=== PATIENT | female | born 1960 | race Caucasian/White ===

== ENCOUNTER 2023-04-04 15:40 | Emergency (ER) | payer BC ==
[2023-04-04] MEDS ORDERED: SODIUM CHLORIDE 500 ML IV STA (15:59)
[2023-04-04] MEDS ORDERED: methylPREDNISolone NA SUCC 125 MG/2 ML VIAL IVPB ONE (16:06)
[2023-04-04 16:37] VITALS: BP 131/70; PULSE 69; RESP 18; TEMP 99; BMI 19.8
[2023-04-04] MEDS ORDERED: ALBUTEROL SO4 2.5/IPRATROPIUM 0.5 INH SOL 3 ML VIAL.NEB. NEB ONE (17:39)
[2023-04-04] MEDS ORDERED: methylPREDNISolone NA SUCC 125 MG/2 ML VIAL ONE (17:39)
[2023-04-04] MEDS: ALBUTEROL SO4 2.5/IPRATROPIUM 0.5 INH SOL 3 ML VIAL.NEB. NEB SCH ×2 (17:53→17:54)
[2023-04-04 17:58] LABS: BASO % 0.6 % (0-2.0); EOS % 0.9 % (0-4.5); HEMATOCRIT 33.7 % (32.4-45.2); HEMOGLOBIN 11.5 GM/dL (10.7-15.3); LYMPH % 23.3 % (8-40); MEAN CELL VOLUME 85.3 fl (80-96); MEAN PLT VOLUME 7.7 fl (7.5-11.1); MONO % 4.9 % (3.8-10.2); NEUT % 70.3 % (42.8-82.8); PLATELET COUNT 139 10^3/uL (134-434); RBC 3.95 M/mm3 (3.60-5.2); RDW 15.8 % (11.6-15.6); WHITE BLOOD COUNT 3.8 K/mm3 (4.0-10.0)
[2023-04-04 18:14] LABS: INR 1.39 (0.83-1.09); PROTHROMBIN TIME (PATIENT) 16.1 SEC (9.7-13.0)
[2023-04-04 18:17] LABS: ACTIVATED PTT 45.1 SECONDS (25.2-36.5)
[2023-04-04 18:32] LABS: ALBUMIN 3.6 g/dl (3.4-5.0); BILIRUBIN,TOTAL 0.3 mg/dL (0.2-1); BLOOD UREA NITROGEN 17.8 mg/dL (7-18); CALCIUM 8.8 mg/dL (8.5-10.1); CREATININE 0.8 mg/dL (0.55-1.3); MAGNESIUM 1.7 mg/dL (1.8-2.4); POTASSIUM 4.2 mmol/L (3.5-5.1); TOT PROT 7.4 g/dl (6.4-8.2)
[2023-04-04] MEDS ORDERED: MAGNESIUM OXIDE 400 MG TABLET (FP) PO ONE (19:05)
[2023-04-04] MEDS ORDERED: MAGNESIUM OXIDE 400 MG TABLET (FP) ONE (19:24)
== END 2023-04-04 19:29 | disposition home or self-care (01) ==
LOC: JER 15:40
PROC: 3E033GC Introduction of Other Therapeutic Substance into Peripheral Vein, Percutaneous Approach (ICD-10-PCS; principal; 2023-04-04)
PROC: 3E0337Z Introduction of Electrolytic and Water Balance Substance into Peripheral Vein, Percutaneous Approach (ICD-10-PCS; 2023-04-04)
PROC: 3E0F7GC Introduction of Other Therapeutic Substance into Respiratory Tract, Via Natural or Artificial Opening (ICD-10-PCS; 2023-04-04)
DX: R05.9 Cough, unspecified (principal); R50.9 Fever, unspecified; M79.10 Myalgia, unspecified site; R07.81 Pleurodynia; U07.1 COVID-19
CPT/HCPCS: 36415; 71045-TC-FY; 80053; 83735; 85025; 85610; 85730; 93005; 93010; 99285-25

== ENCOUNTER 2023-04-13 13:36 | Observation (INO) | payer BC ==
[2023-04-13] MEDS ORDERED: VANCOMYCIN/WATER FOR INJ (PEG) 1,000 MG/200 ML BAG IVPB ONE (13:51)
[2023-04-13] MEDS: APIXABAN 5 MG TABLET PO SCH ×2 (15:05→21:28)
[2023-04-13] MEDS: LACTATED RINGERS SOLUTION 1,000 ML/1,000 ML INFUS.BAG IV SCH (15:05)
[2023-04-13] MEDS: PANTOPRAZOLE 40 MG TABLET PO SCH (15:05)
[2023-04-13] MEDS: FLUTICASONE/UMECLIDIN/VILANTER(200-62.5-25 TRELEGY ELLIPTA) INAHLER IH SCH (15:06)
[2023-04-13 15:54] LABS: BASO % 0.3 % (0-2.0); EOS % 0.9 % (0-4.5); HEMATOCRIT 34.5 % (32.4-45.2); HEMOGLOBIN 11.5 GM/dL (10.7-15.3); LYMPH % 13.4 % (8-40); MCH 28.5 pg (25.7-33.7); MCHC 33.5 g/dl (32.0-36.0); MEAN CELL VOLUME 85.2 fl (80-96); MEAN PLT VOLUME 7.7 fl (7.5-11.1); MONO % 8.3 % (3.8-10.2); NEUT % 77.1 % (42.8-82.8); PLATELET COUNT 203 10^3/uL (134-434); RBC 4.05 M/mm3 (3.60-5.2); RDW 15.2 % (11.6-15.6); WHITE BLOOD COUNT 6.1 K/mm3 (4.0-10.0)
[2023-04-13 16:12] LABS: POTASSIUM 4.7 mmol/L (3.5-5.1)
[2023-04-13 16:14] LABS: CALCIUM 7.8 mg/dL (8.5-10.1)
[2023-04-13 16:15] LABS: BLOOD UREA NITROGEN 15.5 mg/dL (7-18); MAGNESIUM 1.9 mg/dL (1.8-2.4)
[2023-04-13 16:18] LABS: CREATININE 0.8 mg/dL (0.55-1.3); PHOSPHOROUS 3.1 mg/dL (2.5-4.9)
[2023-04-13 16:19] LABS: TOT PROT 6.2 g/dl (6.4-8.2)
[2023-04-13 16:20] LABS: BILIRUBIN,TOTAL 0.5 mg/dL (0.2-1)
[2023-04-13 16:25] LABS: LACTIC ACID 2.9 mmol/L (0.4-2.0)
[2023-04-13 16:26] LABS: ALBUMIN 2.8 g/dl (3.4-5.0)
[2023-04-13] MEDS: PIPERACILLIN/TAZOB 3.375 GM 3.375 GM in DEXTROSE 5%-WATER - 50 ML IVPB SCH (17:41)
[2023-04-13] MEDS ORDERED: amLODIPine BESYLATE 10 MG TABLET (FP) PO SCH (17:45)
[2023-04-13] MEDS: amLODIPine BESYLATE 5 MG TABLET (FP) PO SCH (18:15)
[2023-04-13] MEDS: ROSUVASTATIN CA 20 MG TABLET PO SCH (21:28)
[2023-04-13] MEDS ORDERED: ACETAMINOPHEN 325 MG TABLET (FP) PO PRN (21:58)
[2023-04-13] MEDS: guaiFENesin 600 MG TABLET.ER (FP) PO PRN (22:10)
[2023-04-14] MEDS: PIPERACILLIN/TAZOB 3.375 GM 3.375 GM in DEXTROSE 5%-WATER - 50 ML IVPB SCH ×3 (01:10→17:47)
[2023-04-14] MEDS: LACTATED RINGERS SOLUTION 1,000 ML/1,000 ML INFUS.BAG IV SCH ×2 (04:20→17:46)
[2023-04-14 07:23] LABS: BASO % 0.5 % (0-2.0); EOS % 1.3 % (0-4.5); HEMATOCRIT 30.5 % (32.4-45.2); HEMOGLOBIN 10.1 GM/dL (10.7-15.3); LYMPH % 11.8 % (8-40); MCH 28.4 pg (25.7-33.7); MCHC 33.1 g/dl (32.0-36.0); MEAN CELL VOLUME 85.6 fl (80-96); MEAN PLT VOLUME 7.5 fl (7.5-11.1); MONO % 8.3 % (3.8-10.2); NEUT % 78.1 % (42.8-82.8); PLATELET COUNT 165 10^3/uL (134-434); RBC 3.56 M/mm3 (3.60-5.2); RDW 14.9 % (11.6-15.6); WHITE BLOOD COUNT 5.4 K/mm3 (4.0-10.0)
[2023-04-14 07:29] LABS: INR 1.65 (0.83-1.09); PROTHROMBIN TIME (PATIENT) 19.1 SEC (9.7-13.0)
[2023-04-14 07:39] LABS: POTASSIUM 4.1 mmol/L (3.5-5.1)
[2023-04-14 07:41] LABS: ALBUMIN 2.5 g/dl (3.4-5.0); CALCIUM 8.5 mg/dL (8.5-10.1); MAGNESIUM 1.8 mg/dL (1.8-2.4)
[2023-04-14 07:44] LABS: CREATININE 0.7 mg/dL (0.55-1.3)
[2023-04-14 07:45] LABS: PHOSPHOROUS 2.8 mg/dL (2.5-4.9)
[2023-04-14 07:46] LABS: BILIRUBIN,TOTAL 0.5 mg/dL (0.2-1); TOT PROT 5.6 g/dl (6.4-8.2)
[2023-04-14] MEDS: APIXABAN 5 MG TABLET PO SCH ×2 (09:44→22:00)
[2023-04-14] MEDS: PANTOPRAZOLE 40 MG TABLET PO SCH (09:44)
[2023-04-14] MEDS: amLODIPine BESYLATE 5 MG TABLET (FP) PO SCH (09:44)
[2023-04-14] MEDS: FLUTICASONE/UMECLIDIN/VILANTER(200-62.5-25 TRELEGY ELLIPTA) INAHLER IH SCH (09:44)
[2023-04-14] MEDS: guaiFENesin 600 MG TABLET.ER (FP) PO PRN (09:56)
[2023-04-14] MEDS ORDERED: SENNOSIDES 8.6MG TABLET (FP) PO PRN (17:25)
[2023-04-14] MEDS ORDERED: ZOLPIDEM TARTRATE 5 MG TABLET PO PRN (19:13)
[2023-04-14] MEDS: ROSUVASTATIN CA 20 MG TABLET PO SCH (22:00)
[2023-04-15] MEDS: PIPERACILLIN/TAZOB 3.375 GM 3.375 GM in DEXTROSE 5%-WATER - 50 ML IVPB SCH ×3 (01:08→17:43)
[2023-04-15 05:05] VITALS: PULSE 59
[2023-04-15] MEDS ORDERED: LEVOTHYROXINE NA 75 MCG TABLET (FP) PO SCH (07:00)
[2023-04-15 07:25] LABS: BASO % 0.6 % (0-2.0); EOS % 2.2 % (0-4.5); HEMATOCRIT 29.5 % (32.4-45.2); HEMOGLOBIN 9.9 GM/dL (10.7-15.3); LYMPH % 16.8 % (8-40); MCH 28.6 pg (25.7-33.7); MCHC 33.5 g/dl (32.0-36.0); MEAN CELL VOLUME 85.4 fl (80-96); MEAN PLT VOLUME 7.1 fl (7.5-11.1); MONO % 7.3 % (3.8-10.2); NEUT % 73.1 % (42.8-82.8); PLATELET COUNT 175 10^3/uL (134-434); RBC 3.45 M/mm3 (3.60-5.2); RDW 14.4 % (11.6-15.6); WHITE BLOOD COUNT 4.5 K/mm3 (4.0-10.0)
[2023-04-15 08:58] VITALS: RESP 15
[2023-04-15] MEDS: APIXABAN 5 MG TABLET PO SCH (10:20)
[2023-04-15] MEDS: amLODIPine BESYLATE 5 MG TABLET (FP) PO SCH (10:20)
[2023-04-15] MEDS: FLUTICASONE/UMECLIDIN/VILANTER(200-62.5-25 TRELEGY ELLIPTA) INAHLER IH SCH (10:20)
[2023-04-15] MEDS: guaiFENesin 600 MG TABLET.ER (FP) PO PRN (10:20)
[2023-04-15] MEDS: PANTOPRAZOLE 40 MG TABLET PO SCH (10:20)
[2023-04-15] MEDS ORDERED: POLYETHYLENE GLYCOL (HEALTHYLAX) 3350 17 GM PACKET PO SCH (11:15)
[2023-04-15] MEDS ORDERED: LEVOTHYROXINE NA 100 MCG TABLET (FP) PO SCH (12:30)
[2023-04-15] MEDS ORDERED: IRON SUCROSE INJECTION 300 MG in SODIUM CHLORIDE 235 ML IVPB ONE (13:00)
[2023-04-15] MEDS ORDERED: CYANOCOBALAMIN (VITAMIN B-12) 1000 MCG/1 ML VIAL IM ONE (13:00)
[2023-04-15 13:18] VITALS: BMI 20.3
[2023-04-15 17:02] VITALS: BP 143/71; TEMP 98
[2023-04-16] MEDS ORDERED: MULTIVITAMINS THER W-MINERALS COMBO TABLET (FP) PO SCH (10:00)
== END 2023-04-15 19:00 | disposition home or self-care (01) ==
LOC: JICU 13:36
PROVIDERS: ADMIT Internal Medicine Pulmonary Disease; ATTEND Family Medicine
PROC: 3E023GC Introduction of Other Therapeutic Substance into Muscle, Percutaneous Approach (ICD-10-PCS; principal; 2023-04-13)
PROC: 3E033GC Introduction of Other Therapeutic Substance into Peripheral Vein, Percutaneous Approach (ICD-10-PCS; 2023-04-13)
PROC: 3E0337Z Introduction of Electrolytic and Water Balance Substance into Peripheral Vein, Percutaneous Approach (ICD-10-PCS; 2023-04-13)
PROC: 3E03329 Introduction of Other Anti-infective into Peripheral Vein, Percutaneous Approach (ICD-10-PCS; 2023-04-13)
DX: U07.1 COVID-19 (principal); J18.9 Pneumonia, unspecified organism; J40 Bronchitis, not specified as acute or chronic; C32.9 Malignant neoplasm of larynx, unspecified; R50.9 Fever, unspecified; D50.9 Iron deficiency anemia, unspecified; J44.9 Chronic obstructive pulmonary disease, unspecified; E78.1 Pure hyperglyceridemia; R07.9 Chest pain, unspecified; K59.09 Other constipation; I71.40 Abdominal aortic aneurysm, without rupture, unspecified; R94.5 Abnormal results of liver function studies; I10 Essential (primary) hypertension; J32.8 Other chronic sinusitis; I82.409 Acute embolism and thrombosis of unspecified deep veins of unspecified lower extremity; D64.9 Anemia, unspecified; R53.83 Other fatigue; R63.4 Abnormal weight loss; F17.210 Nicotine dependence, cigarettes, uncomplicated; Z90.49 Acquired absence of other specified parts of digestive tract; Z90.79 Acquired absence of other genital organ(s); R06.00 Dyspnea, unspecified; Z86.010 Personal history of colon polyps
CPT/HCPCS: 0241U-QW; 36415; 71275-TC; 80053; 82607; 82728; 83540; 83550; 83605; 83735; 84100; 84443; 84478; 84484; 85025; 85610; 87040; 87081; 93005; 93010; G0378; J1756; Q9967